=== PATIENT | female | born 1975 | race Caucasian/White ===

== ENCOUNTER 2016-11-17 05:26 | Day surgery (SDC) | payer OTHER ==
[~2016-11-17 05:26] MED LIST: ALLEGRA ALLERG180 M1 PO; AXERT NG; PROBIOTIC1 EA10 PO; [UNRECOGNIZED DRUG - OTHER] NG; [UNRECOGNIZED DRUG - OTHER] PO
== END 2016-11-17 11:36 ==
LOC: SRG 05:26 → SHSB 05:27 → ORW 09:03 → SHSB 11:35
PROC: 0HBT0ZX Excision of Right Breast, Open Approach, Diagnostic (ICD-10-PCS; principal; 2016-11-17)
DX: D24.1 Benign neoplasm of right breast (principal); N60.21 Fibroadenosis of right breast; N64.1 Fat necrosis of breast; N60.11 Diffuse cystic mastopathy of right breast; G43.909 Migraine, unspecified, not intractable, without status migrainosus; K21.9 Gastro-esophageal reflux disease without esophagitis; Z79.899 Other long term (current) drug therapy; Z88.0 Allergy status to penicillin; Z88.1 Allergy status to other antibiotic agents; Z80.3 Family history of malignant neoplasm of breast; Z98.890 Other specified postprocedural states